=== PATIENT | male | born 1980 | race Caucasian/White ===

== ENCOUNTER 2020-04-05 14:44 | Emergency (ER) | payer OTHER, SELFPAY ==
[2020-04-05 14:45] VITALS: BP 127/83; PULSE 90; RESP 16; TEMP 37.2; O2SAT 98
--- NOTE | 2020-04-05 15:34 | ED.GENADULT ---
HPI - General Adult General Chief complaint: Wound/Laceration Stated complaint: racoon bite to right leg Time Seen by Provider: 04/05/20 14:46 Source: patient Mode of arrival: ambulatory Limitations: no limitations History of Present Illness HPI narrative: Patient is a 39-year-old male who presents to emergency department for evaluation of raccoon bite to the right calf that occurred prior day after dog was fighting with a raccoon when he tried to separate them he was bit on the leg patient. Patient denies other injuries or complaints presents for rabies treatment patient notes that there was not enough remaining of the raccoon to perform effective testing. Patient has tetanus up-to-date Related Data Home Medications Medication Instructions Recorded Confirmed budesonide-formoterol [Symbicort] INHALATION 04/05/20 montelukast [Singulair] 10 mg PO HS 04/05/20 Allergies Allergy/AdvReac Type Severity Reaction Status Date / Time No Known Allergies Allergy Verified 04/05/20 15:00 Review of Systems Review of Systems: All systems reviewed & are unremarkable except as noted in HPI and below PMFSH Social History Social History (Updated 04/05/20 @ 16:02 by Swapnil Hunter PA-C) Smoking status: Never smoker Exam Narrative: Exam Narrative: GENERAL: Well-appearing, well-nourished, and in no acute distress. HEAD: Normocephalic, atraumatic. EYES: PERRLA and EOMI. ENT: Nares clear, no rhinorrhea or epistaxis. Mucous membranes moist. EXTREMITIES: Normal range of motion. No edema. Small abrasions of the posterior right calf without erythema fluctuance or swelling SKIN: Warm, dry, no rash. NEURO: No focal deficits. Alert and oriented x3. PSYCH: Normal mood and affect. Course Course Emergency Course: Patient in the room in no distress aware of case findings treatment plan and diagnosis Vital Signs Vital signs: Vital Signs Temperature 98.9 F 04/05/20 14:45 Pulse Rate 90 04/05/20 14:45 Respiratory Rate 16 04/05/20 14:45 Blood Pressure 127/83 04/05/20 14:45 Pulse Oximetry 98 04/05/20 14:45 Temperature 98.9 F 04/05/20 14:45 Pulse Rate 90 04/05/20 14:45 Respiratory Rate 16 04/05/20 14:45 Blood Pressure 127/83 04/05/20 14:45 Pulse Oximetry 98 04/05/20 14:45 Medical Decision Making MDM Narrative Medical decision making narrative: Patients injury or pain is consistent with musculoskeletal etiology. No signs of neurological or vascular compromise on exam. Compartments and tisues are soft without signs of compartment syndrome. Pain is felt appropriate for further evaluation on an outpatient basis. Patient set up to receive additional rabies vaccine with infectious disease nurse at [place] Vital Signs Vital Signs: Vital Signs Temperature 98.9 F 04/05/20 14:45 Pulse Rate 90 04/05/20 14:45 Respiratory Rate 16 04/05/20 14:45 Blood Pressure 127/83 04/05/20 14:45 Pulse Oximetry 98 04/05/20 14:45 Temperature 98.9 F 04/05/20 14:45 Pulse Rate 90 04/05/20 14:45 Respiratory Rate 16 04/05/20 14:45 Blood Pressure 127/83 04/05/20 14:45 Pulse Oximetry 98 04/05/20 14:45 Discharge Plan Discharge Clinical Impression: Bitten by raccoon, initial encounter Patient Disposition: Home, Self-Care Condition: Stable Instructions: Antibiotic Form, Rabies Vaccine (By injection), Rabies (ED) Additional Instructions: Follow up with your primary care doctor in 5-7 days for re-evaluation. Go to ER for worsening pain, vision changes, nausea/vomiting, fever/chills, weakness, chest pain, shortness of breath, numbness/tingling, slurred speech, difficulty walking, change in mental status etc. or any other concerns. Follow up for next 3 vaccine shots Stay in touch with the infectious disease nurse at [place] for guidance Take any prescribed medications as directed. Prescriptions: No Action montelukast [Singulair] 10 mg Tablet 10 mg PO HS RF: 0
[2020-04-05] MEDS: RABIES VACCINE (RABAVERT) 2.5 UNITS VIAL IM (15:39)
[2020-04-05] MEDS: RABIES IMMUNE GLOBULIN/PF 300 UNITS/ML VIAL 1700 UNITS IM (16:15)
== END 2020-04-05 16:30 | disposition home or self-care (01) ==
PROVIDERS: Emergency Provider Emergency Medicine; PCP Family Medicine
DX: S81.851A Open bite, right lower leg, initial encounter (principal); Z23 Encounter for immunization; W55.51XA Bitten by raccoon, initial encounter
CPT/HCPCS: 90375; 90471; 90675; 96372; 99283